=== PATIENT | male | born 1965 | race Caucasian/White ===

== ENCOUNTER 2017-09-28 21:44 | Emergency (ER) | payer OTHER ==
[~2017-09-28] VITALS: Ht 182.9 cm; Wt 79.5 kg
[2017-09-28 21:58] VITALS: Ht 182.9 cm; Wt 79.5 kg
[2017-09-28] MEDS ORDERED: VALIUM5 MG PO (22:03)
[2017-09-28] MEDS ORDERED: ULTRAM50 MG PO (22:03)
[2017-09-28 23:14] LABS: UDS - AMPHET NEGATIVE QUAL (NEGATIVE); UDS - BARB NEGATIVE QUAL (NEGATIVE); UDS - BENZO POSITIVE QUAL (NEGATIVE); UDS - COCAINE NEGATIVE QUAL (NEGATIVE); UDS - OPIATE NEGATIVE QUAL (NEGATIVE); UDS - PCP NEGATIVE QUAL (NEGATIVE); UDS - THC NEGATIVE QUAL (NEGATIVE)
[2017-09-28 23:38] LABS: HEMATOCRIT 40.2 % (42.0-54.0); HEMOGLOBIN 14.5 g/dL (13.5-17.5); LYMPHOCYTES 30.9 % (15-50); MCH 31.3 pg (26.0-34.0); MCHC 36.1 g/dL (31.0-37.0); MCV 86.6 fL (80.0-100.0); MEAN PLATELET VOLUME 9.6 fL (7.4-10.4); NEUTROPHILS 59.5 % (40-80); PLATELET COUNT 223 10x3/uL (130-400); RBC 4.64 10x6/uL (4.20-6.10); RDW 15.1 % (11.5-14.5)
[2017-09-28 23:47] LABS: CALC OSMOLALITY 281 mosm/kg (275-300); CALCIUM 8.8 mg/dL (8.5-10.1); CARBON DIOXIDE 26.6 mmol/L (21.0-32.0); CHLORIDE - SERUM 109 mmol/L (98-107); CREATININE - SERUM 0.8 mg/dL (0.6-1.3); GLUCOSE 86 mg/dL (74-106); POTASSIUM - SERUM 3.9 mmol/L (3.5-5.1); SODIUM 143 mmol/L (136-145); UREA NITROGEN 8 mg/dL (7-18); eGFR NON AFRICAN AMERICAN > 90 mL/min (90-120)
[2017-09-29 01:52] VITALS: BP 144/94
== END 2017-09-29 02:25 ==
LOC: D.ER 21:44
PROVIDERS: Emergency Medicine
DX: F41.9 Anxiety disorder, unspecified (principal); F32.9 Major depressive disorder, single episode, unspecified; I10 Essential (primary) hypertension